=== PATIENT | female | born 1975 | race Hispanic/Latino ===

== ENCOUNTER 2019-02-13 22:37 | Emergency (ER) | payer MEDICARE, OTHER ==
--- NOTE | 2019-02-14 00:03 | Cat Scan Report ---
PROCEDURE: CT HEAD/BRAIN WO CON TECHNIQUE: Computerized tomography of the head was performed without contrast material. CT DOSE LENGTH PRODUCT: mGycm HISTORY: BRADEN, left arm tingling COMPARISONS: None . FINDINGS: Skull and scalp: Normal . Paranasal sinuses: There are minimal dependent secretions in the right sphenoid sinus. . Ventricles and subarachnoid spaces: Normal . Cerebrum: No evidence of hemorrhage, acute infarction or mass . Cerebellum and brainstem: No evidence of hemorrhage, acute infarction or mass . Vasculature: Normal . Other: None . ASPECTS: 10 IMPRESSION: No acute intracranial process. Minimal dependent secretions in the right sphenoid sinus. . This document is electronically signed by Josh Townsend MD., February 14 2019 12:01:27 AM ET
[2019-02-14] MEDS ORDERED: NACL 0.9% 1000 ML 1,000 ML IV ONE (00:07)
[2019-02-14] MEDS ORDERED: BENADRYL IV ONE (00:07)
[2019-02-14] MEDS ORDERED: NUBAIN IV ONE (00:07)
[2019-02-14] MEDS ORDERED: DECADRON IV ONE (00:07)
[2019-02-14 00:18] LABS: Alanine Aminotransferase 15 units/L (7-56); Albumin 3.8 g/dL (3.9-5); BUN/Creatinine Ratio 28; Blood Urea Nitrogen 11 mg/dL (7-17); Calcium 8.9 mg/dL (8.4-10.2); Hemolysis Index 11
[2019-02-14 00:20] LABS: Basophils % (Auto) 0.7 % (0.0-1.8); Eosinophils # (Auto) 0.1 K/mm3 (0.0-0.4); Eosinophils % (Auto) 1.4 % (0.0-4.3); Hematocrit 33.8 % (30.3-42.9); Hemoglobin 10.7 gm/dl (10.1-14.3); Lymphocytes # (Auto) 2.5 K/mm3 (1.2-5.4); Lymphocytes % (Auto) 33.3 % (13.4-35.0); Mean Corpuscular HGB Conc 32 % (30-34); Mean Corpuscular Volume 84 fl (79-97); Monocytes # (Auto) 0.6 K/mm3 (0.0-0.8); Monocytes % (Auto) 8.3 % (0.0-7.3); Platelet Count 518 K/mm3 (140-440); Red Blood Count 4.03 M/mm3 (3.65-5.03)
--- NOTE | 2019-02-14 00:37 | Emergency Department Report ---
ED Headache HPI - General Chief Complaint: Headache Stated Complaint: MIGRAINES, LEFT ARM PAIN, N & V Time Seen by Provider: 02/14/19 00:01 - History of Present Illness Initial Comments: 43-year-old female with history of complex migraines presents to ED report a left-sided headache with tingling to her left arm and leg. Patient reports she experienced the same symptoms during her last complex migraine. Quality: moderate Head Injury Location: temporal Recent Head Trauma: chronic headaches Associated Symptoms: nausea/vomiting. denies: fever/chills, weakness Allergies/Adverse Reactions: Allergies cefixime Allergy (Verified 02/13/19 23:02) Unknown Penicillins Allergy (Verified 02/13/19 23:02) Unknown ED Review of Systems ROS: Stated complaint: MIGRAINES, LEFT ARM PAIN, N & V Other details as noted in HPI Comment: All other systems reviewed and negative Constitutional: denies: chills, fever Gastrointestinal: nausea Neurological: headache, paresthesias. denies: weakness ED Past Medical Hx - Past Medical History Previous Medical History?: Yes Hx Arthritis: Yes (rheumatoid) Hx Headaches / Migraines: Yes Hx Asthma: Yes Additional medical history: MVP, fibromyalgia - Surgical History Past Surgical History?: Yes Hx Cholecystectomy: Yes Additional Surgical History: intestinal blockage, gastric bypass, partial hysterectomy - Social History Smoking Status: Current Every Day Smoker Substance Use Type: None ED Physical Exam - General Limitations: No Limitations General appearance: alert, in no apparent distress - Head Head exam: Present: atraumatic, normocephalic - Eye Eye exam: Present: normal appearance, PERRL, EOMI - ENT ENT exam: Present: mucous membranes moist - Neck Neck exam: Present: normal inspection, full ROM. Absent: tenderness, meningismus - Respiratory Respiratory exam: Present: normal lung sounds bilaterally. Absent: respiratory distress - Cardiovascular Cardiovascular Exam: Present: regular rate, normal rhythm - GI/Abdominal GI/Abdominal exam: Absent: distended - Extremities Exam Extremities exam: Present: normal inspection - Neurological Exam Neurological exam: Present: alert, oriented X3, CN II-XII intact, motor sensory deficit (paresthesias to left arm and leg; strength 5/5 throughout) - Psychiatric Psychiatric exam: Present: normal affect, normal mood - Skin Skin exam: Present: warm, dry, intact, normal color ED Course Vital Signs 02/13/19 02/13/1919 22:59 23:04 00:01 Temperature 97.9 F 97.9 F Pulse Rate 94 H 90 Respiratory 18 18 Rate Blood Pressure 154/99 154/99 O2 Sat by Pulse 99 100 97 Oximetry 02/14/19 02/14/19 00:06 01:00 Temperature Pulse Rate Respiratory 18 Rate Blood Pressure 134/91 147/89 O2 Sat by Pulse 97 95 Oximetry ED Medical Decision Making - Lab Data Result diagrams: 02/13/19 23:38 02/13/19 23:38 - Radiology Data Radiology results: report reviewed, image reviewed - Medical Decision Making - pain improved - no neuro deficits - pt appears comfortable - neurology f/u - return precautions given - Differential Diagnosis migraine, intracranial abnormality Critical care attestation.: If time is entered above; I have spent that time in minutes in the direct care of this critically ill patient, excluding procedure time. ED Disposition Clinical Impression: Migraine Disposition: DC-01 TO HOME OR SELFCARE Is pt being admited?: No Condition: Stable Instructions: Migraine Headache (ED) Referrals: JONNY MALIK MD [Referring] - 3-5 Days Time of Disposition: 01:51
[2019-02-14] MEDS ORDERED: ZOFRAN IV ONE (00:51)
[2019-02-14] MEDS ORDERED: FIORICET PO ONE (01:50)
[2019-02-14 02:17] VITALS: BP 147/89
== END 2019-02-14 02:09 | disposition home or self-care (01) ==
LOC: ED 22:37
DX: G43.909 Migraine, unspecified, not intractable, without status migrainosus (principal); F17.200 Nicotine dependence, unspecified, uncomplicated; J45.909 Unspecified asthma, uncomplicated; I34.1 Nonrheumatic mitral (valve) prolapse; M06.9 Rheumatoid arthritis, unspecified; Z90.710 Acquired absence of both cervix and uterus; Z87.19 Personal history of other diseases of the digestive system; Z88.1 Allergy status to other antibiotic agents; Z88.0 Allergy status to penicillin
CPT/HCPCS: 36415; 70450; 80053; 83690; 85025; 96374; 96375; 99284; J1100; J1200; J2300; J2405; J7030